=== PATIENT | male | born 1960 | race Caucasian/White ===

== ENCOUNTER 2019-02-17 06:38 | Day surgery (SDC) | payer OTHER ==
[2019-02-17] MEDS ORDERED: PROPOFOL 60 ML (10:35)
== END 2019-02-17 11:50 | disposition home or self-care (01) ==
LOC: GIL 06:38
DX: Z12.11 Encounter for screening for malignant neoplasm of colon (principal); K57.30 Diverticulosis of large intestine without perforation or abscess without bleeding; K64.8 Other hemorrhoids; Z80.0 Family history of malignant neoplasm of digestive organs; E78.00 Pure hypercholesterolemia, unspecified; F32.9 Major depressive disorder, single episode, unspecified
CPT/HCPCS: 45378